=== PATIENT | male | born 1940 | race Caucasian/White ===

== ENCOUNTER 2023-07-14 05:53 | Day surgery (SDC) | payer OTHER, SELFPAY ==
[2023-07-14] VITALS (18 sets, daily range): BP systolic 96–174; BP diastolic 52–98; BMI 29.0
[2023-07-14] MEDS: LOW STRENGTH ASPIRIN 81 MG PO (06:50)
[2023-07-14] MEDS: NSS 259 ML IV (06:50)
[2023-07-14] MEDS: NSS 1000 IV (08:50)
--- NOTE | 2023-07-14 09:02 | ITS.CL.CATH ---
[employer]st - Catheterization
Cardiac Catheterization
Procedure Report:
CARDIAC CATHETERIZATION REPORT
Date of Procedure: 07/14/2023
Referring: Domo Solomon DO
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
HEMODYNAMIC DATA
AO: 147/69
LV: 180/19
There is a mean gradient of 35 mmHg across aortic valve consistent with moderate to severe
LEFT VENTRICULOGRAPHY: Normal segmental wall motion with EF 64%
CORONARY ANGIOGRAPHY
Dominance: Right
Left Main: Mild luminal irregularities
LAD: There is a widely patent stent extending from the proximal into the mid LAD with no restenosis (05/2022). There is trivial luminal disease in the distal LAD. The large first diagonal branch is occluded at its origin (unchanged from prior
study with retrograde filling via a collateral from the distal LAD.
Circumflex: A huge bifurcating ramus intermedius branch has a widely patent stent in the slightly smaller but very large daughter branch. The stent has no restenosis. The circumflex proper is occluded proximally just distal to the takeoff of a
tiny OM1. There is faint and minimal retrograde collateral filling of the distal obtuse marginal branch.
RCA: Dominant vessel with 30% proximal RCA stenosis. The mid RCA stent placed in 2021 is widely patent with no restenosis. The RCA terminates with a large PDA and several moderate-sized posterolateral branches which have trivial luminal disease.
Closure Device: 6 Urdu Angio-Seal RFA. Of note, right radial artery access was easily obtained. Similar to prior procedures, there was significant innominate tortuosity which prevented manipulation of the catheters and the aortic root. We
converted to a right femoral artery approach.
Radiation (mGy): 376
DAP (cm2.Gy): 35.0
Fluoroscopy time: 7.6 minutes
CONCLUSIONS
1: Moderate to severe aortic stenosis with mean gradient 35 mmHg
2: Normal left-ventricular wall motion with EF 64%
3. Multivessel CAD as described- all three stents placed in May 2022 remain widely patent. Anterior ischemia is undoubtedly due to the large diagonal territory. This vessel was occluded at its origin and 2021 and remains so with retrograde
filling via the distal LAD collateral
4. He will need close (every 6 month) clinical and at least annual echocardiographic follow-up for progression of aortic stenosis
5. Given his age, consider conversion to single antiplatelet therapy with aspirin
6 . 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 Consider outpatient monitoring
Copy to: Domo Solomon DO, Jone Greenwood MD
Vladimir Du MD, [facility], [facility]
--- NOTE | 2023-07-14 10:40 | PTCARENOTE ---
Geronimo notified of delay of d/c via phone. RN will return call when able to give specific timing (at least 2 hrs.) Geronimo 45 min away.
== END 2023-07-14 13:30 | disposition home or self-care (01) ==
LOC: CATH 05:53
PROVIDERS: ATTENDING PHYSICIAN Internal Medicine Cardiovascular Disease; FAMILY PHYSICIAN Family Medicine; OTHER PHYSICIAN Internal Medicine Cardiovascular Disease
DX: I25.10 Atherosclerotic heart disease of native coronary artery without angina pectoris (principal); Z95.5 Presence of coronary angioplasty implant and graft; I35.0 Nonrheumatic aortic (valve) stenosis; R07.9 Chest pain, unspecified; I10 Essential (primary) hypertension; E78.5 Hyperlipidemia, unspecified; K21.9 Gastro-esophageal reflux disease without esophagitis; Z79.82 Long term (current) use of aspirin; Z79.02 Long term (current) use of antithrombotics/antiplatelets
CPT/HCPCS: 36415; 93005; 93458; C1760; C1894; Q9967